=== PATIENT | male | born 1940 | race Caucasian/White ===

== ENCOUNTER 2025-05-15 23:42 | Emergency (ER) | payer MEDICARE, SELFPAY ==
[2025-05-15 23:43] VITALS: BP 144/65; PULSE 50; RESP 18; TEMP 36.4; O2SAT 98; BMI 25.4
--- OUTSIDE RECORDS SUMMARY | 2025-05-15 23:53 | XMS_ITS | Encounter Summary ---
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 Name Role Phone Lexis Lizama DO Primary Care Provide r Kenyon Earl MD Unavailable [phone] Encounter Details Date Type Department Care Team (Late st Contact Info) Description 10/23/2021 Procedure Pass [facility] Inpatient Periop Services [address] [place] [address] Social History Tobacco Use Types Packs/Day Years Used Date Smoking Tobacco: Never Smokeless Tobacco: Never Alcohol Use Standard Drinks/Week Comments Yes 0 (1 standard drink = 0.6 oz pur e alcohol) SOCIALLY Sex and Gender Information Value Date Recorded Sex Assigned at Male 09/08/2024 6:20 AM [facility] Legal Sex Male 11:54 AM [facility] Gender Identity Male 09/08/2024 6:20 AM [facility] Sexual Orientation Straight 09/08/2024 6: 20 AM [facility] COVID-19 Exposure Response Date Recorded In the last month, have you been in contact with someone who was confirmed or suspected to have Coronavirus / COVID-19? No / Unsure 10/23/2021 9:10 AM MST documented as of this encounter Plan of Treatment Not on file documented as of this encounter Visit Diagnoses Not on filedocumented in this encounter Care Teams Roof Cement And Paint Maker Helper Relationship Specialty [place] [address] [place] [address] PCP - General Family Medicine 10/20/21 Kenyon Earl MD [address] [place] [address] Surgeon Invasive Cardiology 08/25/24 documented as of this encounter
--- OUTSIDE RECORDS SUMMARY | 2025-05-15 23:53 | XMS_ITS | Clinical Summary ---
Author Organization [facility] Health Address [address] [place] [address] Care Team Providers Care Underwater Welder Name Role Phone Unavailable Primary Care Provider Unavailabl e Allergies No known active allergies Medications simvastatin (ZOCOR) 40 mg tablet 05/11/2023 Active Active Problems No known active problems Social History Tobacco Use Types Packs/Day Years Used Date Smoking Tobacco: Never Smokeless Tobacco: Never Alcohol Use Standard Drinks/Week Comments Yes 0 (1 standard drink = 0.6 oz pur e alcohol) only once in a while Sex and Gender Information Value Date Recorded Sex Assigned at Not on file Legal Sex Male 3:00 AM [facility] Gender Identity Not on file Sexual Orientation Not on file Last Filed Vital Signs Vital Sign Reading Time Taken Comments Blood Pressure 150/83 06/22/2023 10:03 AM [facility] Pulse 56 06/22/2023 10:03 AM [facility] Temperature - - Respiratory Rate - - Oxygen Saturation - - Inhaled Oxygen Concentration - - Weight - - Height - - Body Mass Index - - Plan of Treatment Health Maintenance Due Date Last Done Comments Dental X-Ray: Full Mouth 09/22/2019 09/21/2016 Dental X-Ray: Panoramic 09/22/2019 09/21/2016 Periodontal Maintenance 09/23/2023 06/22/20 23, 02/06/2021, 10/03/2020, Additional history exists Dental Oral Exam 09/24/2023 03/23/2023, , 01/31/2019, Additional history exists Dental X-Ray: Bitewings 09/24/2023 03/23/2023 Scaling and Root Planing 04/29/2025 023, 04/15/2023, 04/02/2023, Additional history exists Procedures Procedure Name Priority Date/Time Associated Diagnosis Comments PERIO MAINTENANCE Routine 06/22/2023 10: 00 AM [facility] PERIODONTAL SCALING AND ROOT PLANING - FOUR OR MORE TEETH PER QUADRANT Routine 04/15/2023 8:00 AM [facility] PERIODIC ORAL EVALUATION - ESTABLISHED PATIENT Routine 03/23/2023 12:00 PM [facility] PANORAMIC RADIOGRAPHIC IMAGE Routine 09/21/2016 1:00 AM [facility] INTRAORAL - COMPREHENSIVE SERIES OF RADIOGRAPHIC IMAGES Routine 09/21/2016 1:00 AM MST from Last 3 Months or Most Recently Relevant to Health Maintenance
--- OUTSIDE RECORDS SUMMARY | 2025-05-15 23:53 | XMS_ITS | Clinical Summary ---
Author Organization [facility] Address [address] [place] [address] Care Team Providers Care Calibration Laboratory Technician Name Role Phone Lexis Lizama DO Primary Care Provide r Kenyon Earl MD Unavailable [phone] Allergies No known active allergies Medications simvastatin (ZOCOR) 10 mg tablet Take 10 mg by mouth at bedtime. Active tadalafil 20 MG tablet Take 20 mg by mouth once as needed. 11/09/2023 Active Immunizations Immunization Administration Dates Next Due SARS-CoV-2 (COVID-19) mRNA v accine 12+ Years (Pfizer Monovalent) 04/28/2021,09/03/2020,08/07/2020 Tdap 06/04/2023 Social History Tobacco Use Types Packs/Day Years Used Date Smoking Tobacco: Never Smokeless Tobacco: Never Tobacco Cessation:Counseling Given: Not Answered Alcohol Use Standard Drinks/Week Comments Yes 5 (1 standard drink = 0.6 oz pur e alcohol) Never more than 2 per day Sex and Gender Information Value Date Recorded Sex Assigned at Male 09/08/2024 6:20 AM [facility] Legal Sex Male 11:54 AM [facility] Gender Identity Male 09/08/2024 6:20 AM [facility] Sexual Orientation Straight 09/08/2024 6: 20 AM [facility] Last Filed Vital Signs Vital Sign Reading Time Taken Comments Blood Pressure 130/60 09/21/2024 7:46 AM [facility] Pulse 80 09/08/2024 1:37 PM [facility] Temperature 36.8 C (98.3 F) 06/04/2023 12:17 PM [facility] Respiratory Rate 19 06/04/2023 3:02 PM [facility] Oxygen Saturation 95% 09/08/2024 1:37 PM MST Inhaled Oxygen Concentration - - Weight 77.1 kg (170 lb) 09/21/2024 7:46 AM [facility] Height 172.7 cm (5' 8 ) 09/21/2024 7:46 AM [facility] Body Mass Index 25.85 09/21/2024 7:46 AM [facility] Plan of Treatment Health Maintenance Due Date Last Done Comments Adult Wellness Visit 1958 RSV Vaccine (1 - 1-dose 75+ series) 2015 Pneumococcal Vaccine: 50+ Years (2 of 2 - PCV20 or PCV21) 08/04/2018 08/04/2017 COVID-19 Vaccine ( season) 2025 04/20/2023, 06/25/2022, 11/27/2021, Additional history exists Influenza Vaccine (#1) 2025 , 04/30/2022, 09/12/2021, Additional history exists DTaP,Tdap,or Td Vaccines (3 - Td or Tdap) 06/04/2033 06/04/2023, 11/05/2022 Zoster (Shingles) Vaccine Completed 11/04/2023, HPV VACCINES (No Doses Required) Completed Hepatitis A Vaccine Aged Out No longe r eligible based on patient's age to complete this topic Medical Devices Implanted Type Area Cdl Program Coordinator Device Identifier Shelf Expiration Date Model / Serial / Lot Mesh Parietex Progrip 6 X 3.5in (15x9cm) - [id number] Implanted:Qty: 1 on 10/23/2021 by Ahmet Malone DO at [facility] Mesh Left: Inguinal [employer] 06/24/2026 [id number] / / [id number] Insurance HUMAN GOLD PLUS HMO HUMANA GOLD PLUS HMO HUMANA GOLD PLUS HMO HUMANA GOLD PLUS HMO Care Teams Calibration Laboratory Technician Relationship Specialty Start Date End Date Lexis Lizama, [address] [place], [place] [id number] PCP - General Family Medicine 10/20/21 Kenyon Earl MD [address] [place] [address] Surgeon Invasive Cardiology 08/25/24
--- OUTSIDE RECORDS SUMMARY | 2025-05-15 23:53 | XMS_ITS | Encounter Summary ---
Author Organization [facility] Health Address [address] [place] [address] Care Team Providers Care Title Clerk Automobile Name Role Phone Unavailable Primary Care Provider Unavailabl e Prior Encounters Date Type Department Care Team Description 06/22/2023 10:00 AM [facility] Office Visit [facility] [address], [address] [place] [address] Slime Rodriguez, [facility] 04/15/2023 Travel 04/15/2023 8:00 AM [facility] Office Visit [facility] [address], [facility] [address] [place] [address] Slime Rodriguez, [facility] 04/02/2023 Travel 04/02/2023 11:00 AM [facility] Office Visit [facility] [address], [facility] [address] [place] [address] Slime Rodriguez, [facility] 03/23/2023 12:00 PM [facility] Office Visit [facility] [address], [address] [place] [address] Brandi Burt, [facility] 03/23/2023 12:00 PM [facility] Office Visit [facility] [address], [facility] [address] [place] [address] Slime Rodriguez, [facility] 02/18/2021 Travel 02/18/2021 9:00 AM [facility] Office Visit [facility] [address], [address] [place] [address] Elliott Brady [facility] 02/06/2021 11:00 AM [facility] Office Visit [facility] [address], [address] [place] [address] Elliott Brady, [facility] 02/06/2021 Travel 02/06/2021 11:00 AM [facility] Office Visit [facility] [address] [address], [address] [place] [address] Rebekah Holt, [facility] 10/03/2020 Travel 10/03/2020 2:00 PM [facility] Office Visit [facility] [address] [place] [address] Rebekah Holt, [facility] 05/14/2020 Travel 05/14/2020 12:00 PM [facility] Office Visit [facility] [address] [place] [address] Desean Zurita, [facility] 05/07/2020 Travel 05/07/2020 1:00 PM [facility] Office Visit [facility] [address] [place] [address] Desean Zurita, [facility] 05/07/2020 12:00 PM [facility] Office Visit [facility] [address] [place] [address] Rebekah Holt, [facility] 08/14/2019 Converted CPS Chart Documents [facility] [address] [place] [address] <No scans attached> 08/14/2019 Converted 13x Documents [facility] [address] [place] [address] <No scans attached> Last Filed Vital Signs Vital Sign Reading Time Taken Comments Blood Pressure 150/83 06/22/2023 10:03 AM [facility] Pulse 56 06/22/2023 10:03 AM [facility] Temperature - - Respiratory Rate - - Oxygen Saturation - - Inhaled Oxygen Concentration - - Weight - - Height - - Body Mass Index - - Plan of Treatment Not on file Procedures Procedure Name Priority Date/Time Associated Diagnosis Comments LR ANTIBACT IRR/QUAD Routine 06/22/2023 10:00 AM MST UR ANTIBACT IRR/QUAD Routine 06/22/2023 10:00 AM MST SANJU DECON Routine 06/22/2023 10:00 AM MST TOPICAL APPLICATION OF FLUORIDE VARNISH Routine 06/22/2023 10:00 AM MST ORAL HYGIENE INSTRUCTIONS Routine 2022 10:00 AM MST PERIO MAINTENANCE Routine 06/22/2023 10: 00 AM MST UL ANTIBACT IRR/QUAD Routine 06/22/2023 10:00 AM MST LL ANTIBACT IRR/QUAD Routine 06/22/2023 10:00 AM MST ORAL HYGIENE INSTRUCTIONS Routine 2022 8:00 AM MST TOPICAL APPLICATION OF FLUORIDE VARNISH Routine 04/15/2023 8:00 AM MST LL SANJU DECON/QD Routine 04/15/2023 8:00 AM MST UL SANJU DECON/QD Routine 04/15/2023 8:00 AM MST LL ANTIBACT IRR/QUAD Routine 04/15/2023 8:00 AM MST UL PERIODONTAL SCALING AND ROOT PLANING - FOUR OR MORE TEETH PER QUADRANT Routine 04/15/2023 8:00 AM MST UL ANTIBACT IRR/QUAD Routine 04/15/2023 8:00 AM MST LL PERIODONTAL SCALING AND ROOT PLANING - FOUR OR MORE TEETH PER QUADRANT Routine 04/15/2023 8:00 AM MST UR SANJU DECON/QD Routine 04/02/2023 11:00 AM MST LR PERIODONTAL SCALING AND ROOT PLANING - FOUR OR MORE TEETH PER QUADRANT Routine 04/02/2023 11:00 AM MST UR ANTIBACT IRR/QUAD Routine 04/02/2023 11:00 AM MST LR SANJU DECON/QD Routine 04/02/2023 11:00 AM MST UR PERIODONTAL SCALING AND ROOT PLANING - FOUR OR MORE TEETH PER QUADRANT Routine 04/02/2023 11:00 AM MST LR ANTIBACT IRR/QUAD Routine 04/02/2023 11:00 AM MST ORAL HYGIENE INSTRUCTIONS Routine 2022 12:00 PM MST PROPHYLAXIS - ADULT Routine 03/23/2023 1 2:00 PM MST DENTAL PLAN ENROLL 1 Routine 03/23/2023 12:00 PM MST PERIODIC ORAL EVALUATION - ESTABLISHED PATIENT Routine 03/23/2023 12:00 PM MST BITEWINGS - FOUR RADIOGRAPHIC IMAGES Routine 03/23/2023 12:00 PM MST SINGLE X-RAY Routine 03/23/2023 12:00 PM MST ADDITIONAL X-RAY Routine 03/23/2023 12:0 0 PM MST 2 CERECFIRED CROWNPOST Routine 9:00 AM MST NC X-RAY Routine 02/18/2021 9:00 AM MST 2 CEMENT CROWN Routine 02/18/2021 9:00 AM MST 2 CORE BUILDUP, INCLUDING ANY PINS WHEN REQUIRED Routine 02/18/2021 9:00 AM MST NC X-RAY Routine 02/18/2021 9:00 AM MST 19 CEMENT CROWN Routine 02/18/2021 9:00 AM MST 19 CORE BUILDUP, INCLUDING ANY PINS WHEN REQUIRED Routine 02/18/2021 9:00 AM MST 19 CERECFIRED CROWNPOST Routine 02/19/20 9:00 AM MST PERIO MAINTENANCE Routine 02/06/2021 11: 00 AM MST ORAL HYGIENE INSTRUCTIONS Routine 2020 11:00 AM MST INTRAORAL PHOTO Routine 02/06/2021 11:00 AM MST INTRAORAL PHOTO Routine 02/06/2021 11:00 AM MST INTRAORAL PHOTO Routine 02/06/2021 11:00 AM MST INTRAORAL PHOTO Routine 02/06/2021 11:00 AM MST BITEWINGS - FOUR RADIOGRAPHIC IMAGES Routine 02/06/2021 11:00 AM MST PERIODIC ORAL EVALUATION - ESTABLISHED PATIENT Routine 02/06/2021 11:00 AM MST PERIO MAINTENANCE Routine 10/03/2020 2:0 0 PM MST NC X-RAY Routine 05/14/2020 12:00 PM MST 5 CEMENT CROWN Routine 05/14/2020 12:00 PM MST 5 CORE BUILDUP, INCLUDING ANY PINS WHEN REQUIRED Routine 05/14/2020 12:00 PM MST 5 CERECFIRED CROWNPOST Routine 12:00 PM MST PERIO MAINTENANCE Routine 05/07/2020 12: 00 PM MST PERIO MAINTENANCE Routine 01/04/2020 12: 00 AM MST ORAL HYGIENE INSTRUCTIONS Routine 2019 12:00 AM MST 1 SANJU DECON Routine 01/04/2020 12:00 AM MST TOPICAL APPLICATION OF FLUORIDE VARNISH Routine 01/04/2020 12:00 AM MST CANCELLED APPOINTMENT Routine 11/16/2019 12:00 AM MST PERIO MAINTENANCE Routine 06/15/2019 1:0 0 AM MST ORAL HYGIENE INSTRUCTIONS Routine 2018 1:00 AM MST DENTAL PLAN ENROLL 1 Routine 06/15/2019 1:00 AM [facility] 9 MIDFL COMPOSITE FILLING Routine 2018 12:00 AM MST 8 FL COMPOSITE FILLING Routine 9 12:00 AM MST PERIODIC ORAL EVALUATION - ESTABLISHED PATIENT Routine 01/31/2019 12:00 AM MST PERIO MAINTENANCE Routine 01/31/2019 12: 00 AM MST ORAL HYGIENE INSTRUCTIONS Routine 2018 12:00 AM MST PERIO MAINTENANCE Routine 09/29/2018 1:0 0 AM MST ORAL HYGIENE INSTRUCTIONS Routine 2018 1:00 AM MST PERIODIC ORAL EVALUATION - ESTABLISHED PATIENT Routine 05/10/2018 12:00 AM MST PERIO MAINTENANCE Routine 05/10/2018 12: 00 AM MST ORAL HYGIENE INSTRUCTIONS Routine 2017 12:00 AM MST BITEWINGS - FOUR RADIOGRAPHIC IMAGES Routine 05/10/2018 12:00 AM [facility] PERIODIC ORAL EVALUATION - ESTABLISHED PATIENT Routine 10/28/2017 12:00 AM MST PERIO MAINTENANCE Routine 10/28/2017 12: 00 AM MST ORAL HYGIENE INSTRUCTIONS Routine 2017 12:00 AM MST PERIO MAINTENANCE Routine 06/21/2017 1:0 0 AM MST ORAL HYGIENE INSTRUCTIONS Routine 2016 1:00 AM [facility] NC X-RAY Routine 03/13/2017 12:00 AM [facility] 19 RECEMENT CROWN Routine 03/13/2017 12: 00 AM MST 18 RECEMENT CROWN Routine 03/13/2017 12: 00 AM MST 19 CROWN Routine 03/13/2017 12:00 AM MST 18 CROWN Routine 03/13/2017 12:00 AM [facility] 14 CROWN PORC POST Routine 02/18/2017 12 :00 AM MST PERIO MAINTENANCE Routine 02/15/2017 12: 00 AM MST ORAL HYGIENE INSTRUCTIONS Routine 2016 12:00 AM MST UR PERIODONTAL SCALING AND ROOT PLANING - FOUR OR MORE TEETH PER QUADRANT Routine 10/05/2016 12:00 AM MST UL PERIODONTAL SCALING AND ROOT PLANING - FOUR OR MORE TEETH PER QUADRANT Routine 10/05/2016 12:00 AM MST LR PERIODONTAL SCALING AND ROOT PLANING - FOUR OR MORE TEETH PER QUADRANT Routine 10/05/2016 12:00 AM [facility] LL PERIODONTAL SCALING AND ROOT PLANING - FOUR OR MORE TEETH PER QUADRANT Routine 10/05/2016 12:00 AM MST ORAL HYGIENE INSTRUCTIONS Routine 2016 12:00 AM MST TOPICAL APPLICATION OF FLUORIDE VARNISH Routine 10/05/2016 12:00 AM MST LOCAL ANESTHESIA IN CONJUNCTION WITH OPERATIVE OR SURGICAL PROCEDURES Routine 10/05/2016 12:00 AM MST LOCAL ANESTHESIA IN CONJUNCTION WITH OPERATIVE OR SURGICAL PROCEDURES Routine 10/05/2016 12:00 AM MST 14 DOBL AMALGAM 4+ SURFACE Routine 09/21/2016 1:00 AM MST 31 O [facility] 1 SURFACE Routine 7 1:00 AM MST 18 O [facility] 1 SURFACE Routine 7 1:00 AM MST 12 O [facility] 1 SURFACE Routine 7 1:00 AM MST 10 L [facility] 1 SURFACE Routine 7 1:00 AM MST 7 L [facility] 1 SURFACE Routine 09/21/2016 1:00 AM MST 5 O [facility] 1 SURFACE Routine 09/21/2016 1:00 AM MST 2 O [facility] 1 SURFACE Routine 09/21/2016 1:00 AM MST 19 CROWN PFM POST Routine 09/21/2016 1:0 0 AM MST 3 CROWN PFM POST Routine 09/21/2016 1:00 AM MST COMPREHENSIVE ORAL EVALUATION - NEW OR ESTABLISHED PATIENT Routine 09/21/2016 1:00 AM MST PANORAMIC RADIOGRAPHIC IMAGE Routine 09/21/2016 1:00 AM MST INTRAORAL - COMPREHENSIVE SERIES OF RADIOGRAPHIC IMAGES Routine 09/21/2016 1:00 AM MST INTRAORAL PHOTO Routine 09/21/2016 1:00 AM MST INTRAORAL PHOTO Routine 09/21/2016 1:00 AM MST INTRAORAL PHOTO Routine 09/21/2016 1:00 AM MST INTRAORAL PHOTO Routine 09/21/2016 1:00 AM MST 10 MFL COMPOSITE FILLING Routine 017 1:00 AM MST 9 MFL COMPOSITE FILLING Routine 09/21/19 17 1:00 AM MST 9 DFL COMPOSITE FILLING Routine 09/21/19 17 1:00 AM MST 8 MFL COMPOSITE FILLING Routine 09/21/19 17 1:00 AM MST 8 DFL COMPOSITE FILLING Routine 09/21/19 17 1:00 AM MST 7 MFL COMPOSITE FILLING Routine 09/21/19 17 1:00 AM MST Visit Diagnoses Not on file
--- NOTE | 2025-05-16 | CTR_ITS ---
PROCEDURE INFORMATION: Exam: CT Cervical Spine Without Contrast Exam date and time: 05/16/2025 12:12 AM Age: 85 years old Clinical indication: Injury or trauma; Fall; Blunt trauma; Additional info: Fall/ extremity weakness/numbness TECHNIQUE: Imaging protocol: Computed tomography of the cervical spine without contrast. Radiation optimization: All CT scans at this facility use at least one of these dose optimization techniques: automated exposure control; mA and/or kV adjustment per patient size (includes targeted exams where dose is matched to clinical indication); or iterative reconstruction. COMPARISON: CT head wo con* [id number] 05/16/2025 12:12 AM RADIATION DOSE METRICS: Total DLP (mGy-cm): 323.3 FINDINGS: Bones: Degenerative changes including osteophytes, disc space narrowing, endplate spurring, and facet hypertrophy. No acute fracture. Lungs: No pneumothorax. Soft tissues: Unremarkable. CT/CT cervical spin wo con* [id number] IMPRESSION: No acute cervical spine fracture.
--- NOTE | 2025-05-16 | CTR_ITS ---
PROCEDURE INFORMATION: Exam: CT Head Without Contrast Exam date and time: 05/16/2025 12:12 AM Age: 85 years old Clinical indication: Injury or trauma; Fall; Blunt trauma (contusions or hematomas); Additional info: Fall/head injury TECHNIQUE: Imaging protocol: Computed tomography of the head without contrast. Radiation optimization: All CT scans at this facility use at least one of these dose optimization techniques: automated exposure control; mA and/or kV adjustment per patient size (includes targeted exams where dose is matched to clinical indication); or iterative reconstruction. COMPARISON: CT cervical spin wo con* [id number] 05/16/2025 12:12 AM RADIATION DOSE METRICS: Total DLP (mGy-cm): 1319.6 FINDINGS: Brain: No edema, mass effect, or midline shift. No acute intracranial hemorrhage. Periventricular and deep white matter hypodensities compatible with chronic microvascular ischemic changes. Cerebral ventricles: No ventriculomegaly. Paranasal sinuses: Visualized sinuses are unremarkable. No fluid levels. Mastoid air cells: No mastoid effusion. Bones: Unremarkable. No acute fracture. Soft tissues: Unremarkable. CT/CT head wo con* [id number] IMPRESSION: No acute intracranial abnormality.
--- NOTE | 2025-05-16 | CTR_ITS ---
PROCEDURE INFORMATION: Exam: CT Thoracic Spine Without Contrast Exam date and time: 05/16/2025 12:18 AM Age: 85 years old Clinical indication: Injury or trauma; Fall; Blunt trauma (contusions or hematomas); Additional info: Fall/ weakness/numbness TECHNIQUE: Imaging protocol: Computed tomography of the thoracic spine without contrast. Radiation optimization: All CT scans at this facility use at least one of these dose optimization techniques: automated exposure control; mA and/or kV adjustment per patient size (includes targeted exams where dose is matched to clinical indication); or iterative reconstruction. COMPARISON: CT cervical spin wo con* [id number] 05/16/2025 12:12 AM RADIATION DOSE METRICS: Total DLP (mGy-cm): 998.32 FINDINGS: Bones/joints: No acute fracture or compression deformity is noted. No subluxations. Degenerative joint and disc disease is seen in the imaged spine. Multilevel anterior apophyseal osteophytosis is noted. Schmorl's nodes are present. 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 Vasculature: Mild atherosclerotic changes of the thoracic aorta and its major branch vessels is noted. Mild atherosclerosis of the aorta and its major branching vessels is noted. Lungs: Dependent atelectasis is noted in the lung bases. CT/CT thoracic spin wo con* [id number] IMPRESSION: 1. No acute fracture or compression deformity. 2. No subluxations.
[2025-05-16] MEDS: HYDROmorphone 0.5 MG/0.5 ML INJ IVP (00:05)
[2025-05-16] MEDS: ondansetron 2 mg/ML SDV 2 mL 4 MG IVP (00:05)
--- NOTE | 2025-05-16 00:08 | W.ED.FALL ---
HPI - Fall General: Chief Complaint: Fall Stated Complaint: fall, neck pain Time Seen by Provider: 05/15/25 23:44 History of Present Illness: 85yo M w/cc of fall, closed head injury. He slipped on the stairs, hit his scalp on the steps and hyperextended his neck. He is presenting with weakness of extremities UE greater than LE, generalized paresthesias and loss of bladder control. He denies LOC, confusion, blood thinner use, chest pain, shortness of breath, abd pain, n/v. Related Data Home Medications ?Medication ?Instructions ?Recorded ?Confirmed simvastatin 40 mg tablet 40 mg 05/15/25 Allergies Allergy/AdvReac Type Severity Reaction Status Date / Time No Known Allergies Allergy Verified 05/15/25 23:49 Physical Exam Narrative: EXAM NARRATIVE: VS reviewed. Patient is alert, oriented. He has a scalp laceration, bleeding controlled. He has an abrasion to the nasal bridge. Patient is in a C collar. Rolling/spine exam deferred as I already have a high degree of spinal cord injury. He has clear lungs b/l, normal heart sounds. Abd is soft, nondistended, nontender. Course Vital Signs: Vital signs: Vital Signs Temperature 97.5 F L 05/15/25 23:43 Pulse Rate 49 L 05/16/25 01:52 Respiratory Rate 14 05/16/25 02:22 Blood Pressure 113/54 05/16/25 01:52 Pulse Oximetry 92 05/16/25 01:52 Oxygen Delivery Me thod Room Air 05/16/25 01:52 MDM - Fall Medical Decision Making 85yo M w/cc of closed head injury, fall, weakness that is greater in upper extremities versus lower extremities, generalized paresthesias some loss of control of his bladder. Differential diagnosis includes but is limited to, central cord syndrome, cervical neck fracture, thoracic compression fracture, ICH, skull fracture, fracture, dislocation, abrasion, laceration to any extremity. On exam patient is alert, oriented and hemodynamically stable. He was evaluated CT of his head, CT C and T-spine. Treated for pain w/IV dilaudid and zofran. Patient has negative CT imaging for ICH or acute fracture of the cervical or thoracic spine. 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 Patient was transferred for higher level care. He may need consultation with neurosurgery which we do not have available at this hospital. Lab Data Radiology Impressions Cervical Spine CT 05/16/25 00:00 IMPRESSION: No acute cervical spine fracture. Head CT 05/16/25 00:00 IMPRESSION: No acute intracranial abnormality. Thoracic Spine CT 05/16/25 00:00 IMPRESSION: 1. No acute fracture or compression deformity. 2. No subluxations. All radiology interpretation(s) finalized by discharge Discharge Plan Discharge Condition: Stable Prescriptions: No Action simvastatin 40 mg tablet 40 mg Print Language: Latvian Coding Level of Care Code ED [employer] HPI - Wound/Laceration General Chief Complaint: Fall Stated Complaint: fall, neck pain Time Seen by Provider: 05/15/25 23:44 History of Present Illness Location: scalp Related Data Home Medications ?Medication ?Instructions ?Recorded ?Confirmed simvastatin 40 mg tablet 40 mg 05/15/25 Allergies Allergy/AdvReac Type Severity Reaction Status Date / Time No Known Allergies Allergy Verified 05/15/25 23:49 Laceration Repair Procedure performed by: Marion Mead Location: Scalp Sedation: No Anesthesia: other (lidocaine w/epi) Irrigation: saline Skin closure: marilyn Patient tolerated procedure: well Additional details: 3cm laceration closed with 5 marilyn
[2025-05-16 01:05] VITALS: BP 131/59; PULSE 47; RESP 16; O2SAT 98
[2025-05-16 01:52] VITALS: BP 113/54; PULSE 49; RESP 14; O2SAT 92
[2025-05-16 02:22] VITALS: RESP 14
[2025-05-16] MEDS: morphine 4 mg/mL SDV 1 mL IVP (02:22)
[2025-05-16] MEDS: acetaminophen 1,000 MG/100 ML PIGGYBACK 400 MG IV (02:22)
[2025-05-16] MEDS: lidocaine-epi 1% 20 mL INJ INJECTION (02:23)
[2025-05-16 03:23] VITALS: BP 122/55; PULSE 50; RESP 12; O2SAT 98
== END 2025-05-16 03:15 | disposition short-term general hospital (02) ==
PROVIDERS: Emergency Provider Emergency Medicine
DX: M54.2 Cervicalgia (principal); W10.9XXA Fall (on) (from) unspecified stairs and steps, initial encounter; S01.01XA Laceration without foreign body of scalp, initial encounter
CPT/HCPCS: 12002; 36415; 70450; 72125; 72128; 96374; 96375; 99285; J0131; J1171; J2270; J2405; J9999